=== PATIENT | male | born 1995 | race African-American/Black ===

== ENCOUNTER 2017-08-26 17:42 | Emergency (ER) | payer OTHER ==
[~2017-08-26] VITALS: Ht 188 cm; Wt 72.6 kg
[2017-08-26] MEDS ORDERED: FLEXERIL PO (18:04)
[2017-08-26] MEDS ORDERED: IBUPROFEN 600600 M1 PO (18:04)
[2017-08-26 18:27] VITALS: BP 112/62
== END 2017-08-26 18:28 | disposition home or self-care (01) ==
LOC: ER 17:42
DX: S16.1XXA Strain of muscle, fascia and tendon at neck level, initial encounter (principal); V43.02XA Car driver injured in collision with other type car in nontraffic accident, initial encounter; Y93.89 Activity, other specified; Y92.89 Other specified places as the place of occurrence of the external cause; Y99.8 Other external cause status